=== PATIENT | male | born 1935 | race Caucasian/White ===

== ENCOUNTER 2019-02-07 23:33 | Emergency (ER) | payer MEDICARE, BC ==
[2019-02-07] MEDS ORDERED: Metoclopramide 10 MG/2 ML SDV IVPUSH ONE (23:40)
[2019-02-07] MEDS ORDERED: Lactated Ringers 1,000 ML IV ONE (23:40)
--- NOTE | 2019-02-08 00:27 | EDM.PDOC ---
ED HPI GENERAL MEDICAL PROBLEM - General Chief Complaint: Gastrointestinal Problem Stated Complaint: WEAK/VOMITING Time Seen by Provider: 02/08/19 00:15 Source of Information: Reports: Patient, Family, RN History Limitations: Reports: Other (no old records) - History of Present Illness INITIAL COMMENTS - FREE TEXT/NARRATIVE: 83 yo male who lima here and who has metastatic lung CA treated with chemo presents with onset of vomiting about 9 pm tonight x 2-3. He has had a mild intermittent SERNA since yesterday. Was unaware of fever until arrival in the ER. Is getting his chemo in [place]. Onset: Today Onset Date: 02/08/19 Onset Time: 21:00 Duration: Waxing/Waning Location: Reports: Head (mild SERNA) Quality: Reports: Ache (head) Severity: Mild Improves with: Reports: Medication Worsens with: Reports: Other (uncertain) Context: Reports: Other (See HPI) Associated Symptoms: Reports: Headaches, Nausea/Vomiting. Denies: Chest Pain, Cough, Fever/Chills, Rash, Shortness of Breath Treatments SOLE LAYER: Reports: Acetaminophen - Related Data Allergies Allergy/AdvReac Type Severity Reaction Status Date / Time No Known Allergies Allergy Verified 02/07/19 23:52 Home Meds: Home Meds Budesonide/Formoterol [Symbicort 160-4.5 MCG] 1 puff IH ASDIRECTED PRN 02/07/19 [History] Dabrafenib Mesylate [Tafinlar] 150 mg PO BID 02/07/19 [History] Pentoxifylline 400 mg PO DAILY 02/07/19 [History] Prochlorperazine Maleate [Compazine] 10 mg PO Q6HR 02/07/19 [History] Trametinib Dimethyl Sulfoxide [Mekinist] 2 mg PO DAILY 02/07/19 [History] Triamcinolone Acetonide [Triamcinolone Acetonide 0.1% Crm] 1 applic TOP ASDIRECTED 02/07/19 [History] Past Medical History HEENT History: Reports: Cataract Respiratory History: Reports: Other (See Below) Other Respiratory History: lung cancer 2013 Oncologic (Cancer) History: Reports: Lung Dermatologic History: Reports: Cellulitis, Other (See Below) Other Dermatologic History: dermatitis - Past Surgical History HEENT Surgical History: Reports: Cataract Surgery Respiratory Surgical History: Reports: Thoracentesis GI Surgical History: Reports: Appendectomy Social & Family History - Tobacco Use Smoking Status *Q: Never Smoker - Caffeine Use Caffeine Use: Reports: Coffee - Recreational Drug Use Recreational Drug Use: No ED ROS GENERAL - Review of Systems Review Of Systems: See Below Constitutional: Reports: Malaise HEENT: Reports: No Symptoms Respiratory: Reports: No Symptoms Cardiovascular: Reports: No Symptoms Endocrine: Reports: No Symptoms GI/Abdominal: Reports: Nausea, Vomiting. Denies: Abdominal Pain, Black Stool, Bloody Stool, Constipation, Diarrhea, Distension, Hematemesis, Hematochezia : Reports: No Symptoms Musculoskeletal: Reports: No Symptoms Skin: Reports: No Symptoms Neurological: Reports: No Symptoms ED EXAM, GI/ABD - Physical Exam Exam: See Below Exam Limited By: No Limitations General Appearance: Alert, WD/WN, No Apparent Distress Eyes: Bilateral: Normal Appearance Ears: Normal External Exam, Normal Canal, Hearing Grossly Normal, Normal TMs Nose: Normal Inspection, No Blood Throat/Mouth: Normal Inspection, Normal Lips, Normal Oropharynx, Normal Voice, No Airway Compromise Head: Atraumatic, Normocephalic Neck: Normal Inspection, Supple, Non-Tender Respiratory/Chest: No Respiratory Distress, Lungs Clear, Normal Breath Sounds, No Accessory Muscle Use Cardiovascular: Regular Rate, Rhythm, No Edema, Tachycardia, Other (port present R side of chest) GI/Abdominal Exam: Normal Bowel Sounds, Soft, Non-Tender, No Distention Back Exam: Normal Inspection. No: CVA Tenderness (R), CVA Tenderness (L) Extremities: Normal Inspection, Normal Range of Motion, Non-Tender, No Pedal Edema Neurological: Alert, Oriented, CN II-XII Intact, Normal Cognition, No Motor/ Sensory Deficits Psychiatric: Normal Affect, Normal Mood Skin Exam: Warm, Dry, Intact, Normal Color, No Rash Course - Vital Signs Last Recorded V/S: Last Vital Signs Temp 38.1 C 02/07/19 23:48 Pulse 112 H 02/08/19 01:06 Resp 36 H 02/08/19 01:06 BP 121/68 02/08/19 01:06 Pulse Ox 92 L 02/08/19 01:06 - Orders/Labs/Meds Orders: Active Orders 24 hr Category Date Time Status Chest 2V [CR] Stat Exams 02/08/19 00:50 Taken CULTURE BLOOD [BC] Stat Lab 02/08/19 00:10 Received CULTURE BLOOD [] Stat Lab 02/08/19 00:30 Received Labs: Laboratory Tests 02/07/19 02/08/19 02/08/19 Range/Units 23:40 00:05 00:05 WBC 7.8 (4.5-11.0) K/uL RBC 3.82 L (4.30-5.90) M/uL Hgb 11.7 L (12.0-15.0) g/dL Hct 34.6 L (40.0-54.0) % MCV 91 (80-98) fL MCH 31 (27-31) pg MCHC 34 (32-36) % Plt Count 191 (150-400) K/uL Sodium 130 L (140-148) mmol/L Potassium 4.3 (3.6-5.2) mmol/L Chloride 93 L (100-108) mmol/L Carbon Dioxide 25 (21-32) mmol/L Anion Gap 16.3 H (5.0-14.0) mmol/L BUN 27 H (7-18) mg/dL Creatinine 1.3 (0.8-1.3) mg/dL Est Cr Clr Drug Dosing 41.54 mL/min Estimated GFR (MDRD) 52 L (>60) Glucose 108 H (74-106) mg/dL Lactic Acid 1.2 (0.4-2.0) mmol/L Calcium 8.9 (8.5-10.1) mg/dL Urine Color (YELLOW) Urine Appearance (CLEAR) Urine pH (5.0-8.0) Ur Specific [place] (1.008-1.030) Urine Protein (NEGATIVE) mg/dL Urine Glucose (UA) (NEGATIVE) mg/dL Urine Ketones (NEGATIVE) mg/dL Urine Occult Blood (NEGATIVE) Urine Nitrite (NEGATIVE) Urine Bilirubin (NEGATIVE) Urine Urobilinogen (0.2-1.0) EU/dL Ur Leukocyte Esterase (NEGATIVE) Urine RBC (0-5) Urine WBC (0-5) Ur Epithelial Cells Amorphous Sediment Urine Bacteria Urine Mucus 02/08/19 Range/Units 01:00 WBC (4.5-11.0) K/uL RBC (4.30-5.90) M/uL Hgb (12.0-15.0) g/dL Hct (40.0-54.0) % MCV (80-98) fL MCH (27-31) pg MCHC (32-36) % Plt Count (150-400) K/uL Sodium (140-148) mmol/L Potassium (3.6-5.2) mmol/L Chloride (100-108) mmol/L Carbon Dioxide (21-32) mmol/L Anion Gap (5.0-14.0) mmol/L BUN (7-18) mg/dL Creatinine (0.8-1.3) mg/dL Est Cr Clr Drug Dosing mL/min Estimated GFR (MDRD) (>60) Glucose (74-106) mg/dL Lactic Acid (0.4-2.0) mmol/L Calcium (8.5-10.1) mg/dL Urine Color Yellow (YELLOW) Urine Appearance Clear (CLEAR) Urine pH 6.0 (5.0-8.0) Ur Specific [place] 1.020 (1.008-1.030) Urine Protein 30 H (NEGATIVE) mg/dL Urine Glucose (UA) Normal (NEGATIVE) mg/dL Urine Ketones Negative (NEGATIVE) mg/dL Urine Occult Blood Trace (NEGATIVE) Urine Nitrite Negative (NEGATIVE) Urine Bilirubin Negative (NEGATIVE) Urine Urobilinogen 1 (0.2-1.0) EU/dL Ur Leukocyte Esterase Negative (NEGATIVE) Urine RBC 0-5 (0-5) Urine WBC 0-5 (0-5) Ur Epithelial Cells Few Amorphous Sediment Not seen Urine Bacteria Few Urine Mucus Not seen Meds: Medications Discontinued Medications Generic Name Dose Route Start Last Admin Trade Name Freq PRN Reason Stop Dose Admin Lactated Ringer's 1,000 mls @ 1,000 mls/hr 02/07/19 23:40 02/08/19 00:23 Ringers, Lactated IV 02/08/19 00:39 1,000 mls/hr BOLUS ONE Administration Metoclopramide HCl 10 mg 02/07/19 23:40 02/08/19 00:25 Reglan IVPUSH 02/07/19 23:41 10 mg ONETIME ONE Administration - Radiology Interpretation Free Text/Narrative:: CXR-Opacified L lung, ? acuity Departure - Departure Time of Disposition: 01:35 Disposition: Home, Self-Care 01 Condition: Fair Clinical Impression: Febrile illness, acute Nausea and vomiting Qualifiers: Vomiting type: unspecified Vomiting Intractability: non-intractable Qualified Code(s): R11.2 - Nausea with vomiting, unspecified - Discharge Information *PRESCRIPTION DRUG MONITORING PROGRAM REVIEWED*: No *COPY OF PRESCRIPTION DRUG MONITORING REPORT IN PATIENT SANDY: No Instructions: Nausea and Vomiting, Adult, [id number] Referrals: PCP,None [Primary Care Provider] - Forms: ED Department Discharge Additional Instructions: Give Zofran as needed for nausea control. Give acetaminophen as needed for fever control. Recheck in the clinic on Saturday, return here if worse over the weekend. - My Orders Last 24 Hours: My Active Orders 02/08/19 00:10 CULTURE BLOOD [BC] Stat 02/08/19 00:30 CULTURE BLOOD [BC] Stat 02/08/19 00:50 Chest 2V [CR] Stat - Assessment/Plan Last 24 Hours: My Active Orders 02/08/19 00:10 CULTURE BLOOD [BC] Stat 02/08/19 00:30 CULTURE BLOOD [BC] Stat 02/08/19 00:50 Chest 2V [CR] Stat
--- NOTE | 2019-02-08 02:13 | CRLCR ---
INDICATION: Fever. Hypoxia. COMPARISON: None. FINDINGS/IMPRESSION: Near-complete opacification of the left hemithorax with only a small amount of aeration in the perihilar region of the left upper and mid lung, and moderate left lung volume loss with leftward shift of the trachea. Underlying mass and/or pneumonia is not excluded and further evaluation with chest CT should be considered. Right lung appears clear. Port-A-Cath extends into the SVC. The heart is obscured. Included bones are within normal limits. Dictated by Ankit Beauchamp MD @ 02/08/2019 2:08:40 AM Dictated by: Ankit Beauchamp MD @ 02/08/2019 02:11:08 (Electronically Signed)
== END 2019-02-08 01:55 | disposition home or self-care (01) ==
LOC: JP.ED 23:33
DX: R11.2 Nausea with vomiting, unspecified (principal); R50.9 Fever, unspecified; C34.90 Malignant neoplasm of unspecified part of unspecified bronchus or lung; Z79.899 Other long term (current) drug therapy
CPT/HCPCS: 36415; 71046; 80048; 81001; 83605; 85027; 87040; 96361; 96374; 99283; 99284; J1642; J2765; J7120; 36556